=== PATIENT | female | born 1985 | race Caucasian/White ===

== ENCOUNTER 2021-12-21 23:46 | Emergency (ER) | payer OTHER ==
[~2021-12-21] VITALS: Ht 157.5 cm; Wt 90.7 kg
[~2021-12-21 23:46] MED LIST: BACTRIM DS TAB1 EACH PO; HYDROCODONE-APA1 TA1 PO; IBUPROFEN 600600 M1 PO; OMEPRAZOLE 20 M20 M1 PO; ONDANSETRON HCL4 M2 PO; TRAMADOL 50 MG50 MG PO
[2021-12-22 01:01] LABS: ABSOLUTE BASOPHILS 0.1 thou/uL (0.0-0.2); ABSOLUTE EOSINOPHILS 0.2 thou/uL (0.0-0.7); ABSOLUTE LYMPHOCYTES 3.4 thou/uL (0.8-5.3); ABSOLUTE MONOCYTES 0.4 thou/uL (0.0-1.2); ABSOLUTE NEUTROPHILS 4.7 thou/uL (1.6-8.1); BASOPHILS 0.6 %; EOSINOPHILS 1.7 %; HEMATOCRIT 38.3 % (37.0-47.0); HEMOGLOBIN 12.8 gm/dL (12.0-15.0); LYMPHOCYTES 38.9 %; MCH 29.3 pg (26.0-34.0); MCHC 33.4 g/dL (28.0-37.0); MCV 87.6 fL (80.0-100.0); MONOCYTES 4.7 %; MPV 8.4 fl. (7.2-11.1); NUCLEATED RBCS 0 /100WBC; PLATELET COUNT* 268 thou/uL (150-400); POLYS 54.1 %; RBC 4.38 mil/uL (4.20-5.00); WBC 8.6 thou/uL (4.0-11.0)
[2021-12-22 01:13] LABS: CREATININE 0.7 mg/dL (0.6-1.3); POTASSIUM 3.7 mmol/L (3.5-5.1)
[2021-12-22] MEDS ORDERED: METFORMIN HCL500 M3 PO (01:13)
[2021-12-22] MEDS ORDERED: BIRTH CONTROL (01:14)
[2021-12-22 01:18] LABS: TOTAL BILIRUBIN 0.2 mg/dL (<0.1-1.0); TOTAL PROTEIN 8.2 g/dL (6.4-8.2)
[2021-12-22 01:31] LABS: URINE BILIRUBIN NEGATIVE (Negative); URINE BLOOD NEGATIVE (Negative); URINE CLARITY CLEAR; URINE COLOR STRAW; URINE GLUCOSE-RANDOM NEGATIVE (Negative); URINE KETONES NEGATIVE (Negative); URINE LEUKOCYTES-REFLEX NEGATIVE (Negative); URINE NITRITE-REFLEX NEGATIVE (Negative); URINE PROTEIN NEGATIVE (Negative); URINE SPECIFIC GRAVITY <= 1.005 (1.005-1.030); URINE UROBILINOGEN 0.2 E.U./dl (0.2-1.0)
[2021-12-22 02:19] VITALS: BP 129/76
--- NOTE | 2021-12-22 10:03 | EKG ---
[place] [address] ELECTROCARDIOGRAM REPORT Name: OATESMO Room: [facility]#: [id number] Admission: 12/21/21 Attend Phys: Discharge: 12/22/21 Date of : 87 Date of Service: 12/22/2116 Report #: [id number] THIS REPORT FOR: //name// [facility] ED Test Date: 2021-12-22 Test Time: 00:17:32 Pat Name: MO OATES Department: Room: Gender: Marketing Programs Manager: : [id number] Requested By: Doris Hector Order Number: [id number] MD: Darin Herrera Measurements Intervals [place] Rate: 112 P: 76 AK: 169 QRS: -1 QRSD: 94 T: 31 QT: 340 QTc: 464 Interpretive Statements Sinus tachycardia No previous ECG available for comparison Electronically Signed On 12-22-2021 9:07:54 [employer] by Darin Herrera [email or web address] <ELECTRONICALLY SIGNED> By: Darin Herrera MD, [facility] 12/22/21906 Darin Herrera MD, FACC /EPI
== END 2021-12-22 02:19 | disposition home or self-care (01) ==
LOC: M.ERS 23:46
PROVIDERS: Personal Emergency Response Attendant
DX: F41.1 Generalized anxiety disorder (principal); R03.0 Elevated blood-pressure reading, without diagnosis of hypertension; R11.2 Nausea with vomiting, unspecified; R07.89 Other chest pain; R42 Dizziness and giddiness; R41.0 Disorientation, unspecified; R00.2 Palpitations; R61 Generalized hyperhidrosis; R68.2 Dry mouth, unspecified; R25.1 Tremor, unspecified; K21.9 Gastro-esophageal reflux disease without esophagitis; E11.9 Type 2 diabetes mellitus without complications; Z90.49 Acquired absence of other specified parts of digestive tract; Z79.899 Other long term (current) drug therapy